=== PATIENT | female | born 1945 | race African-American/Black ===

== ENCOUNTER 2017-09-29 10:01 | Observation (INO) | payer OTHER ==
[2017-09-29 10:46] LABS: Absolute Lymphocytes (CBC) 1.9 K/uL (0.7-4.9); Absolute Monocytes 0.5 K/uL (0.1-1.3); Absolute Neutrophil 3.4 K/uL (1.8-8.0); Eosinophils % 0.5 % (0-4.4); Hematocrit 41.8 % (36.0-45.0); Lymphocytes % 32.3 % (15.3-44.8); MCH 29.1 pg (27.0-35.0); MPV 9.6 fL (7.6-11.3); Monocytes % 8.9 % (3.3-12.3)
[2017-09-29 10:50] LABS: Protime INR 1.05
[2017-09-29 11:02] LABS: Albumin 4.4 g/dL (3.2-5.5); Bilirubin Direct 0.1 mg/dL (0-0.2); Bilirubin Total 0.9 mg/dL (0.3-1.2); Magnesium 2.2 mg/dL (1.8-2.5); Protein, Total 7.7 g/dL (6.0-8.3)
[2017-09-29 11:06] LABS: CKMB Creatine Kinase MB 3.9 ng/ml (0.3-4.0)
--- NOTE | 2017-09-29 11:51 | RAD REPORT ---
EXAM DESCRIPTION: CT - Chest For Pe Angio - 09/29/2017 11:29 am CLINICAL HISTORY: Chest pain. Shortness of breath. COMPARISON: None. TECHNIQUE: CT angiogram of the pulmonary arteries was performed with MIP. All CT scans are performed using dose optimization technique as appropriate and may include automated exposure control or mA/KV adjustment according to patient size. FINDINGS: No evidence of pulmonary thromboembolism. No acute aortic finding demonstrated. Mild cardiomegaly is seen. Mild interstitial pulmonary edema is noted. No significant pericardial or pleural fluid. Moderate thoracic spondylosis. Small cyst is present in the left lobe liver. IMPRESSION: No evidence of pulmonary thromboembolism. Mild interstitial pulmonary edema.
--- NOTE | 2017-09-29 13:06 | RAD REPORT ---
EXAM DESCRIPTION: RAD - Chest Single View - 09/29/2017 11:07 am CLINICAL HISTORY: Chest pain. COMPARISON: 02/23/2014 FINDINGS: Portable technique limits examination quality. Mild interstitial pulmonary edema is seen. The heart is mildly prominent size. No displaced fractures . IMPRESSION: Mild interstitial pulmonary edema.
--- NOTE | 2017-09-29 13:15 | EDPHYS ---
Physician Documentation [facility] Name: Aditi Mitchell Age: 72 yrs Sex: Female : 1945 Arrival Date: 09/29/2017 Time: 10:04 Bed 5 Private MD: Marta Womack F ED Physician Jarret Anaya HPI: 09/29 12:26 This 72 yrs old Black Female presents to ER via Ambulatory with complaints of Chest rn Pain. 12:26 The patient or guardian reports chest pain that is located primarily in the substernal rn area. Onset: 2 week(s) ago. The pain does not radiate. Associated signs and symptoms: Pertinent positives: shortness of breath, Pertinent negatives: abdominal pain, cough, diaphoresis, dizziness, headache, lightheadedness, palpitations. The chest pain is described as sharp. Duration: The patient or guardian reports multiple episodes, that are intermittent. Severity of pain: At its worst the pain was mild in the emergency department the pain is unchanged. The patient has not experienced similar symptoms in the past. Reports chest pain, substernal, non-radiating, not assoc with anything specific, seen by pcp today, sent here for evaluation, last stress test in 2010, told was normal. + mild intermittent sob.. Historical: - Allergies: 10:16 No Known Allergies; aa5 - PMHx: 10:16 Hypertension; aa5 - PSHx: 10:16 Appendectomy; Hysterectomy; Tubal ligation; aa5 - Immunization history:: Pneumococcal vaccine is not up to date. - Social history:: Smoking status: Patient/guardian denies using tobacco. - Ebola Screening: : No symptoms or risks identified at this time. - Family history:: not pertinent. - Hospitalizations: : No recent hospitalization is reported. ROS: 12:26 Constitutional: Negative for fever, chills, and weight loss, Eyes: Negative for injury, rn pain, redness, and discharge, Cardiovascular: Negative for palpitations, and edema, Respiratory: Negative for cough, wheezing, and pleuritic chest pain, Abdomen/GI: Negative for abdominal pain, nausea, vomiting, diarrhea, and constipation, MS/Extremity: Negative for injury and deformity, Skin: Negative for injury, rash, and discoloration, Neuro: Negative for headache, weakness, numbness, tingling, and seizure. Exam: 12:26 Constitutional: This is a well developed, well nourished patient who is awake, alert, rn and in no acute distress. Head/Face: Normocephalic, atraumatic. Eyes: Pupils equal round and reactive to light, extra-ocular motions intact. Lids and lashes normal. Conjunctiva and sclera are non-icteric and not injected. Cornea within normal limits. Periorbital areas with no swelling, redness, or edema. Cardiovascular: Regular rate and rhythm with a normal S1 and S2. No gallops, murmurs, or rubs. Normal PMI, no JVD. No pulse deficits. Respiratory: Lungs have equal breath sounds bilaterally, clear to auscultation and percussion. No rales, rhonchi or wheezes noted. No increased work of breathing, no retractions or nasal flaring. Abdomen/GI: Soft, non-tender, with normal bowel sounds. No distension or tympany. No guarding or rebound. No evidence of tenderness throughout. MS/ Extremity: Pulses equal, no cyanosis. Neurovascular intact. Full, normal range of motion. Equal circumference. Neuro: Awake and alert, GCS 15, oriented to person, place, time, and situation. Cranial nerves II-XII grossly intact. Motor strength 5/5 in all extremities. Sensory grossly intact. Vital Signs: 10:14 BP 172 / 97; Pulse 77; Resp 18 S; Temp 97.9(TE); Pulse Ox 97% on R/A; Weight 97.52 kg aa5 (R); Height 5 ft. 3 in. (160.02 cm) (R); Pain 0/10; 11:02 BP 161 / 91; Pulse 79; Resp 22; Pulse Ox 99% on R/A; tw2 12:00 BP 168 / 104; Pulse 67; Resp 17; Pulse Ox 100% on R/A; tw2 12:59 BP 172 / 95; Pulse 71; Resp 19; Pulse Ox 98% on R/A; tw2 13:38 BP 175 / 97; Pulse 71; Resp 17; Pulse Ox 97% on R/A; tw2 14:49 BP 144 / 87; Pulse 65; Resp 16; Pulse Ox 100% on R/A; tw2 10:14 Body Mass Index 38.09 (97.52 kg, 160.02 cm) aa5 MDM: 10:17 Patient medically screened. rn 13:13 Differential diagnosis: acute myocardial infarction, acute pericarditis, coronary rn artery disease costochondritis, gastroesophageal reflux disease (GERD), pleurisy, pneumothorax, pulmonary embolus. Data reviewed: vital signs, nurses notes, lab test result(s), EKG, radiologic studies, CT scan, plain films, and as a result, I will admit patient. Counseling: I had a detailed discussion with the patient and/or guardian regarding: the historical points, exam findings, and any diagnostic results supporting the discharge/admit diagnosis, lab results, radiology results, the need for further work-up and treatment in the hospital. Response to treatment: the patient's symptoms have mildly improved after treatment, and as a result, I will admit patient. Admission orders: after a detailed discussion of the patient's condition and case, the admit orders are written by me. 09/29 10:28 Order name: Basic Metabolic Panel; Complete Time: 11: 09/29 10:28 Order name: BNP; Complete Time: 11: rn 09/29 10:28 Order name: CBC with Diff; Complete Time: 11: rn 09/29 10:28 Order name: Ckmb; Complete Time: 11: rn 09/29 10:28 Order name: CPK; Complete Time: 11: rn 09/29 10:28 Order name: LFT's; Complete Time: 11: rn 09/29 10:28 Order name: Magnesium; Complete Time: 11: rn 09/29 10:28 Order name: PT-INR; Complete Time: 11: rn 09/29 10:28 Order name: Ptt, Activated; Complete Time: 11: rn 09/29 10:28 Order name: Troponin (emerg Dept Use Only); Complete Time: 11: rn 09/29 10:28 Order name: XRAY Chest (1 view); Complete Time: 13: rn 09/29 11:13 Order name: CT Chest For PE Angio; Complete Time: 13: rn 09/29 13:38 Order name: Urine Dipstick--Ancillary (enter results) bd 09/29 13:57 Order name: Urine Dipstick-Ancillary EDMS 09/29 10:28 Order name: EKG; Complete Time: 10: rn 09/29 10:28 Order name: Cardiac monitoring; Complete Time: 10:42 rn 09/29 10:28 Order name: EKG - Nurse/Tech; Complete Time: 11:10 rn 09/29 10:28 Order name: IV Saline Lock; Complete Time: 10:43 rn 09/29 10:28 Order name: Labs collected and sent; Complete Time: 10:43 rn 09/29 10:28 Order name: O2 Per Protocol; Complete Time: : rn 09/29 10:28 Order name: O2 Sat Monitoring; Complete Time: 10:42 rn Administered Medications: 13:30 Drug: Aspirin Chewable Tablet 324 mg Route: PO; tw2 13:37 Follow up: Response: No adverse reaction tw2 Disposition: 09/29/17 13:15 Hospitalization ordered by Marta Womack for Observation. Preliminary diagnosis is Chest pain, unspecified. - Bed requested for Telemetry/MedSurg (observation). - Status is Observation. sg - Condition is Stable. - Problem is an ongoing problem. - Symptoms are unchanged. UTI on Admission? No Signatures: Dispatcher [employer] EDMS Gabrielle House Steven, RN RN sg Jarret Anaya MD MD rn Calderon, Audri RN RN aa5 Sharon Collazo RN RN tw2 Corrections: (The following items were deleted from the chart) 15:15 13:15 Hospitalization Ordered by Marta Womack MD for Observation. Preliminary bd diagnosis is Chest pain, unspecified. Bed requested for Telemetry/MedSurg (observation). Status is Observation. Condition is Stable. Problem is an ongoing problem. Symptoms are unchanged. UTI on Admission? No. rn 15:36 15:15 09/29/2017 13:15 Hospitalization Ordered by Marta Womack MD for Observation. sg Preliminary diagnosis is Chest pain, unspecified. Bed requested for Telemetry/MedSurg (observation). Status is Observation. Condition is Stable. Problem is an ongoing problem. Symptoms are unchanged. UTI on Admission? No. bd
--- NOTE | 2017-09-29 13:15 | ER ---
Nurse's Notes [facility] Name: Aditi Mitchell Age: 72 yrs Sex: Female : 1945 Arrival Date: 09/29/2017 Time: 10:04 Bed 5 Private MD: Marta Womack F Diagnosis: Chest pain, unspecified Presentation: 09/29 10:13 Presenting complaint: Patient states: intermittent mid-sternal chest pain that began aa5 2-3 weeks ago. Pt states "when I get the pain it takes my breath away". Transition of care: patient was not received from another setting of care. Onset of symptoms was August 2017. Risk Assessment: Do you want to hurt yourself or someone else? Patient reports no desire to harm self or others. Initial Sepsis Screen: Does the patient meet any 2 criteria? No. Patient's initial sepsis screen is negative. Does the patient have a suspected source of infection? No. Patient's initial sepsis screen is negative. Care prior to arrival: None. 10:13 Method Of Arrival: Ambulatory aa5 10:13 Acuity: SURYA 3 aa5 Historical: - Allergies: 10:16 No Known Allergies; aa5 - PMHx: 10:16 Hypertension; aa5 - PSHx: 10:16 Appendectomy; Hysterectomy; Tubal ligation; aa5 - Immunization history:: Pneumococcal vaccine is not up to date. - Social history:: Smoking status: Patient/guardian denies using tobacco. - Ebola Screening: : No symptoms or risks identified at this time. - Family history:: not pertinent. - Hospitalizations: : No recent hospitalization is reported. Screenin:05 Abuse screen: Denies threats or abuse. Nutritional screening: No deficits noted. tw2 Tuberculosis screening: No symptoms or risk factors identified. Fall Risk None identified. Assessment: 10:44 General: Appears in no apparent distress. obese, well groomed, Behavior is calm, tw2 cooperative, appropriate for age. Pain: Complains of pain in mid-sternal area Pain does not radiate. Pain began "a couple of weeks ago" "no pain now". Neuro: Level of Consciousness is awake, alert, obeys commands, Oriented to person, place, time. Cardiovascular: Reports chest pain, comes and goes in the middle of my chest, my DrRimma sent me over here today to get it checked out. Respiratory: Airway is patent Respiratory effort is even, unlabored, Respiratory pattern is regular, symmetrical, Breath sounds are clear bilaterally. GI: No signs and/or symptoms were reported involving the gastrointestinal system. Abdomen is round non-distended, obese, Bowel sounds present X 4 quads. : No signs and/or symptoms were reported regarding the genitourinary system. EENT: No signs and/or symptoms were reported regarding the EENT system. Derm: No signs and/or symptoms reported regarding the dermatologic system. Skin is intact, is healthy with good turgor, Skin is dry, Skin temperature is warm. Musculoskeletal: Range of motion: intact in all extremities. 11:45 Reassessment: Patient appears in no apparent distress at this time. No changes from tw2 previously documented assessment. Patient and/or family updated on plan of care and expected duration. Pain level reassessed. Patient is alert, oriented x 3, equal unlabored respirations, skin warm/dry/pink. 12:15 Reassessment: Patient appears in no apparent distress at this time. Patient and/or iw family updated on plan of care and expected duration. Pain level reassessed. Patient is alert, oriented x 3, equal unlabored respirations, skin warm/dry/pink. pt ambulated to bathroom with steady gait, family at bedside. 13:38 Reassessment: Patient appears in no apparent distress at this time. No changes from tw2 previously documented assessment. Patient and/or family updated on plan of care and expected duration. Pain level reassessed. Patient is alert, oriented x 3, equal unlabored respirations, skin warm/dry/pink. 14:50 Reassessment: Patient appears in no apparent distress at this time. No changes from tw2 previously documented assessment. Patient and/or family updated on plan of care and expected duration. Pain level reassessed. Patient is alert, oriented x 3, equal unlabored respirations, skin warm/dry/pink. 15:21 Reassessment: Patient appears in no apparent distress at this time. No changes from tw2 previously documented assessment. Patient and/or family updated on plan of care and expected duration. Pain level reassessed. Patient is alert, oriented x 3, equal unlabored respirations, skin warm/dry/pink. Vital Signs: 10:14 BP 172 / 97; Pulse 77; Resp 18 S; Temp 97.9(TE); Pulse Ox 97% on R/A; Weight 97.52 kg aa5 (R); Height 5 ft. 3 in. (160.02 cm) (R); Pain 0/10; 11:02 BP 161 / 91; Pulse 79; Resp 22; Pulse Ox 99% on R/A; tw2 12:00 BP 168 / 104; Pulse 67; Resp 17; Pulse Ox 100% on R/A; tw2 12:59 BP 172 / 95; Pulse 71; Resp 19; Pulse Ox 98% on R/A; tw2 13:38 BP 175 / 97; Pulse 71; Resp 17; Pulse Ox 97% on R/A; tw2 14:49 BP 144 / 87; Pulse 65; Resp 16; Pulse Ox 100% on R/A; tw2 10:14 Body Mass Index 38.09 (97.52 kg, 160.02 cm) aa5 ED Course: 10:04 Patient arrived in ED. mr 10:04 Marta Womack MD is Private Physician. mr 10:14 Triage completed. aa5 10:14 Arm band placed on. aa5 10:17 Jarret Anaya MD is Attending Physician. rn 10:30 Placed in gown. Bed in low position. Side rails up X 1. monitoring specialist on. Pulse ox tw2 on. NIBP on. Warm blanket given. 10:35 No provider procedures requiring assistance completed. Inserted saline lock: 22 gauge tw2 in right antecubital area, using aseptic technique. Blood collected. Patient maintains SpO2 saturation greater than 95% on room air. 10:42 Sharon Collazo, PABLO is Primary Nurse. tw2 11:04 X-ray completed. Portable x-ray completed in exam room. Patient tolerated procedure kp1 well. 11:06 XRAY Chest (1 view) In Process Unspecified. EDMS 11:[address] via stretcher. vr 11:26 CT completed. Patient tolerated procedure well. Patient moved back from CT. vr 11:29 CT Chest For PE Angio In Process Unspecified. EDMS 13:15 Marta Womack MD is Hospitalizing Provider. rn 15:20 Patient admitted, IV remains in place. tw2 Administered Medications: 13:30 Drug: Aspirin Chewable Tablet 324 mg Route: PO; tw2 13:37 Follow up: Response: No adverse reaction tw2 Outcome: 13:15 Decision to Hospitalize by Provider. rn 15:20 Admitted to Med/surg accompanied by nurse, via wheelchair, room 405, Report called to tw2 PABLO Novak 15:20 Condition: stable 15:20 Instructed on the need for admit. 15:36 Patient left the ED. sg Signatures: Dispatcher [employer] EDMS Karel Leo RN RN Evelyn Dennis, Ailin, RN PABLO Jarret Anaya MD MD rn Calderon, Jolie, RN RN aa5 Dodie Almaraz Tara, RN RN tw2 Elidia Good [facility] Corrections: (The following items were deleted from the chart) 13:02 12:00 Pulse 71bpm; Resp 19bpm; Pulse Ox 98% RA; tw2 tw2 13:38 12:00 BP 172 / 95; Pulse 71bpm; Resp 19bpm; Pulse Ox 98% RA; tw2 tw2 15:21 15:20 Admitted to Med/surg accompanied by nurse, via wheelchair, room 405, tw2 tw2
[2017-09-29] MEDS ORDERED: ASPIRIN 81 MG CHEWABLE TABLET ONE (13:24)
--- NOTE | 2017-09-29 13:41 | EKG ---
Test Date: 2017-09-29 Test Time: 10:55:12 Events Manager: SWG MEASUREMENT RESULTS: Intervals: Rate: 68 SC: 228 QRSD: 70 QT: 360 QTc: 382 Frost: P: 51 SC: 228 QRS: -15 T: 10 INTERPRETIVE STATEMENTS: Sinus rhythm with 1st degree AV block ST elevation, consider early repolarization, pericarditis, or injury Abnormal ECG Compared to ECG 06/20/2014 14:29:28 First degree AV block now present ST (T wave) deviation now present Electronically Signed On 09-29-17 13:40:33 CDT by Poncho Al
[2017-09-29] MEDS ORDERED: NA CHLORIDE 0.9% 1,000 ML ONE (13:51)
[2017-09-29 13:57] LABS: Urine Blood TRACE (NEG); Urine Glucose NEGATIVE (NEG); Urine Protein NEGATIVE (NEG); Urine pH 7.5 (5.0-7.0)
[2017-09-29] MEDS ORDERED: ONDANSETRON 4 MG/2 ML VIAL IV PRN (15:46)
[2017-09-29] MEDS ORDERED: ACETAMINOPHEN 500 MG TAB PO PRN (15:46)
[2017-09-29 16:26] VITALS: BMI 38.0
[2017-09-29] MEDS ORDERED: PNEUMOCOCCAL VACCINE 0.5 ML IMVAC ONE (17:00)
[2017-09-29] MEDS ORDERED: HOME MED 1 EA UNK (Omeprazole [Omeprazole] 20 MG) PO PRN (17:26)
[2017-09-29] MEDS ORDERED: PANTOPRAZOLE 40MG TABLET PO PRN (17:32)
[2017-09-29] MEDS: AMLODIPINE 5 MG TAB PO SCH (18:17)
[2017-09-29] MEDS: ENOXAPARIN 30 MG/0.3 ML SQ SCH (18:18)
--- NOTE | 2017-09-30 02:08 | HP ---
Date of Admission: 09/29/2017 History Of Present Illness: A 72-year-old female, who presented to the emergency room with a complai nt of chest pain. This had been happening for about 2 weeks. She points to this substernal area. N o radiation. Described as pressure-like, sometimes sharp. Relation to activity is not very evident, sometimes, she said, with activity but she would feel it while she is sitting sometimes. She also h as shortness of breath, mild, off and on, however she felt no palpitation. No dizziness. No nausea, no vomiting, cough or fever or chills. Voiced no other complaints. Review of Systems: Cardiovascular: As mentioned, no palpitation no other complaints. Respiratory: As above. Gastrointestinal: No complaints. Genitourinary: No complaint. Neurological: No complaint. Skeletomuscular: No complaint. Past Medical History: 1.Hypertension. 2.Gastroesophageal reflux disease. Past Surgical History: The patient has had appendectomy, hysterectomy, and tubal ligation in the [facility] t. Medications: Include amlodipine 5 mg p.o. daily and omeprazole 20 mg p.o. daily p.r.n. Allergies: NO KNOWN DRUG ALLERGIES. Physical Examination: Vital Signs: Blood pressure 144/85, pulse 65, temperature 96.8. Heart: Regular rate and rhythm. Chest: Clear to auscultation. Abdomen: Soft, nontender. No hepatosplenomegaly. Bowel sounds normoactive. Extremities: No edema. No cyanosis. Peripheral pulses are felt. Neurological examination: Alert, oriented, nonfocal. Grossly intact. Diagnostic Data: 1.Chest x-ray, mild interstitial edema. 2.EKG showed ST elevation as function of early repolarization, pericarditis, or injury. The patient also had third-degree AV block. 3.Chest CT, mild interstitial pulmonary edema. No evidence of PE. Laboratory Data: CBC nonrevealing. PT/INR within normal. Chemistry, nonfasting blood sugar 128. T he rest is nonrevealing. Troponin less than 0.03. Assessment And Plan: Chest pain with mild shortness of breath for the past 2 weeks. Last episode th morning of her presentation to the emergency room. The patient is being admitted. We will proceed cardiac enzymes. Keep her on telemetry. Repeat EKG and we will ask Cardiology consult. We will al so put the patient on Lovenox prophylaxis. We will continue her on home medicines for her chronic me dical illness, pending Cardiology recommendation. Look orders for details. MIMI/MESHA Voice ID: [id number]
[2017-09-30 06:33] LABS: Absolute Lymphocytes (CBC) 2.9 K/uL (0.7-4.9); Absolute Monocytes 0.7 K/uL (0.1-1.3); Absolute Neutrophil 3.8 K/uL (1.8-8.0); Basophils % 0.7 % (0-1.3); Eosinophils % 1.2 % (0-4.4); Hematocrit 41.1 % (36.0-45.0); Lymphocytes % 37.6 % (15.3-44.8); MCH 29.7 pg (27.0-35.0); MCV 88.2 fL (80-100); MPV 9.9 fL (7.6-11.3); Monocytes % 9.8 % (3.3-12.3); RBC Red Blood Cell Count 4.66 M/uL (3.86-4.86)
[2017-09-30 06:41] LABS: Potassium 4.3 mEq/L (3.6-5.0)
[2017-09-30 08:26] VITALS: O2SAT 100
[2017-09-30] MEDS ORDERED: REGADENOSON 0.4 MG/5 ML SYR IV ONE (08:37)
[2017-09-30] MEDS ORDERED: ASPIRIN EC 81 MG TAB PO SCH (09:00)
--- NOTE | 2017-09-30 10:39 | ECHO ---
HEIGHT: 5 ft 3 in WEIGHT: 215 lb 0 oz DATE OF STUDY: 09/30/[address]: Jarret Anaya JR, MD 2-DIMENSIONAL: YES M.MODE: YES DOPPLER: YES COLOR FLOW: YES TDS: NO PORTABLE: NO DEFINITY: NO BUBBLE STUDY: NO DIAGNOSIS: CHEST PAIN CARDIAC HISTORY: CATHERIZATION: NO SURGERY: NO PROSTHETIC VALVE: NO PACEMAKER: NO MEASUREMENTS (cm) DIASTOLIC (NORMALS) SYSTOLIC (NORMALS) IVSd 1.2 (0.6-1.2) LA Diam 3.7 (1.9-4.0) LVEF 76% LVIDd 4.3 (3.5-5.7) LVIDs 2.4 (2.0-3.5) %FS 44% LVPWd 1.3 (0.6-1.2) Ao Diam 2.9 (2.0-3.7) 2 DIMENSIONAL ASSESSMENT: RIGHT ATRIUM: NORMAL LEFT ATRIUM: NORMAL RIGHT VENTRICLE: NORMAL LEFT VENTRICLE: LEFT VENTRICULAR HYPERTROPHY TRICUSPID VALVE: NORMAL MITRAL VALVE: NORMAL PULMONIC VALVE: NORMAL AORTIC VALVE: NORMAL PERICARDIAL EFFUSION: NONE AORTIC ROOT: NORMAL LEFT VENTRICULAR WALL MOTION: NORMAL. DOPPLER/COLOR FLOW: IMPAIRED LEFT VENTRICULAR RELAXATION. MILD TRICUSPID REGURGITATION. NORMAL RIGHT VENTRICULAR SYSTOLIC PRESSURE. COMMENTS: NORMAL LEFT VENTRICULAR EJECTION FRACTION. LEFT VENTRICULAR HYPERTROPHY. IMPAIRED LEFT VENTRICULAR RELAXATION. MILD TRICUSPID REGURGITATION. TECHNOLOGIST: BRADFORD MÉNDEZ
[2017-09-30] MEDS: AMLODIPINE 5 MG TAB PO SCH (10:51)
[2017-09-30] MEDS: ENOXAPARIN 30 MG/0.3 ML SQ SCH (10:52)
--- NOTE | 2017-09-30 11:20 | PN ---
Subjective: The patient is feeling well. No new complaint. Objective: Vital signs: Blood pressure 135/78, pulse 66, and temperature 97.4. Heart: Regular rate and rhythm. Chest: Clear to auscultation. Abdomen: Soft, benign. Neurologic: Alert, oriented. Grossly intact. Extremities: No edema, no cyanosis. Laboratory Data: CBC noted. Chemistry noted. Blood sugar fasting 125. Cardiac enzymes less than 0 .03. Assessment And Plan: Chest pain. As described before, the patient is clinically stable, pending Car diology recommendation. Continue current treatment for hypertension also and the rest of her home me dications. Look orders for details. MFS/MODL Voice ID: [id number] Report ID: [id number]
--- NOTE | 2017-09-30 12:25 | CON ---
Chief Complaint: Chest pain. History Of Present Illness: Ms. Mitchell for several weeks has been feeling chest pain. It will last for about 10 seconds. It is sudden onset, sudden resolution. It does not seem to be related to meals, body position, exertion, time of day, or anything that she can think of. The patient has never had coronary heart disease. No history of myocardial infarction, stroke, heart surgery, vascular surgery, blood clots. She has hypertension and takes amlodipine. She takes eyedrops for glaucoma and uses omeprazole on an as- needed basis. She takes the amlodipine intermittently, not daily, but she knows sometimes her blood pressure gets too low when she takes it daily. Apparently, this is not a plan that her doctor wanted her to follow. She uses no tobacco, no alcohol, no illegal drugs. She has had a history of hysterectomy , appendectomy, bilateral knee joint replacement surgeries. Physical Examination: Vital Signs: 5 feet 3 inches, 215 pounds, body mass index 38. HEENT: Unremarkable. Carotids: No bruit. Lungs: Clear. Cardiac: Normal. Abdomen: Soft. Extremities: Within normal limits. Laboratory Data: All of her troponins are normal. B-natriuretic peptide is normal. Blood sugar 128. Her electrocardiogram shows first-degree AV block, nonspecific repolarization abnormality. A CT angio of the chest is negative for pulmonary embolus. Chest x-ray suggests mild interstitial increased pulmonary markings, possibly edema or fibrosis. Impression: The patient's chest pain is very atypical for heart, to be more consistent with pulmonary embolus, but even that seems unlikely, especially in light of the normal CT angio of the chest. I recommend we do a stress test because she has had bilateral knee joint replacements, I asked her to walk on a treadmill. We will do a chemical stress test and echocardiogram and we will see what we learn after those, see if there is any need to proceed with further testing such as a heart catheterization. MILTON Voice ID: [id number] Report ID: [id number] AMINA
--- NOTE | 2017-09-30 13:35 | RAD REPORT ---
EXAM DESCRIPTION: NM - Rest Stress Cardiac Imaging - 09/30/2017 1:22 pm CLINICAL HISTORY: Chest pain COMPARISON: None. TECHNIQUE: The patient was administered 10.6 mCi of Tc 99m Sestamibi prior to resting SPECT imaging of the heart. The patient was then administered 31.1 mCi of Tc 99m Sestamibi following exercise or ph armacologic stress. Multiplanar SPECT images were reviewed. FINDINGS: The end diastolic volume is 81 ml, the end systolic volume is 28 ml, and the ejection frac tion is 66 %. No stress-induced ischemic changes are identifiable. Relative decrease in activity across the anterio r wall is favored to be breast attenuation artifact rather than any measurable degree of scarring. IMPRESSION: No stress-induced ischemia. Mild decrease in activity across the anterior wall is believed to be breast attenuation rather than s carring. Ventricular volumes and ejection fraction are normal range.
--- NOTE | 2017-09-30 13:42 | TREADPHA ---
DX: CHEST PAIN Date of Study: 09/30/2017 Ht: 5 3 Wt: 215 lb 0 oz Consulting Physician: ELIZABETH MEDICATIONS: TYLENOL, NORVASC, ASPIRIN, LOVENOX, ZOFRAN, PROTONIX HISTORY: 72 YEAR OLD FEMALE WITH COMPLAINTS OF CHEST PAIN. HISTORY OF HYPERTENSION. PHYSICIAL EXAMINATION: RESTING B.P.: 178/80 RESTING H.R.: 82 RESTING EKG: NORMAL PROTOCOL: LEXISCAN EXERCISE TIME: 3:30 B.P. AT PEAK STRESS: 152/64 IMPRESSION: LEXISCAN INJECTED, CARDIOLITE INJECTED PER PROTOCOL. SEE NUCLEAR MEDICINE REPORT. NO SUPRAVENTRICULAR TACHYCARDIA. NO VENTRICULAR TACHYCARDIA. OCCASIONAL POST PREMATURE VENTRICULAR COMPLEXES. CHEST PAIN THREE OUT OF TEN ON PAIN SCALE AFTER ADMINISTRATION OF LEXISCAN. NON-DIAGNOSTIC ELECTROCARDIOGRAM WITH LEXISCAN STRESS.
[2017-09-30 16:50] VITALS: BP 133/75; TEMP 97.3
== END 2017-09-30 17:52 | disposition home or self-care (01) ==
LOC: ER 10:01 → ERHOLD 13:26 → 4TH 15:25
PROVIDERS: ADMIT Internal Medicine; ATTEND Internal Medicine
DX: R07.9 Chest pain, unspecified (principal); I10 Essential (primary) hypertension; K21.9 Gastro-esophageal reflux disease without esophagitis
CPT/HCPCS: 36415; 71045; 71275; 78452; 80048 ×2; 80076; 81003; 82550; 82553; 83735; 83880; 84484 ×3; 85025 ×2; 85610; 85730; 93005; 93017; 93306; 99285; A9500; G0378 ×2; J1650 ×2; J2785; J7030; Q9967

== ENCOUNTER 2020-07-02 07:35 | Day surgery (SDC) | payer OTHER ==
[2020-06-29 11:57] LABS: Absolute Lymphocytes (CBC) 2.1 K/uL (0.7-4.9); Hematocrit 43.7 % (36.0-45.0); Lymphocytes % 31.4 % (15.3-44.8); MPV 8.8 fL (7.6-11.3); RBC Red Blood Cell Count 4.95 M/uL (3.86-4.86)
[2020-06-29 12:06] LABS: Protime INR 1.04
--- NOTE | 2020-06-29 12:36 | RAD REPORT ---
EXAM DESCRIPTION: Abilio Darnell (2 Views)06/29/2020 12:10 pm CLINICAL HISTORY: Preop for cardiac catheterization COMPARISON: 2018 FINDINGS: The lungs appear clear of acute infiltrate. The heart is borderline enlarged IMPRESSION: No acute abnormalities displayed
[2020-07-02] MEDS ORDERED: NA CHLORIDE 0.9% 500 ML ONE (07:56)
[2020-07-02] MEDS ORDERED: LIDOCAINE 1% 20 ML MDV ONE (08:22)
[2020-07-02] MEDS ORDERED: HEPA 1000U/500MLS 1,000 UNIT/500 ML BAG IV ONE (08:22)
[2020-07-02] MEDS ORDERED: MIDAZOLAM HCL 2 MG/2 ML INJ ONE ×2 (08:55→09:07)
[2020-07-02] MEDS ORDERED: FENTANYL CITR 100 MCG/2 ML ONE (08:55)
[2020-07-02] MEDS ORDERED: ATROPINE SULF 1 MG/10 ML SYR IV ONE (08:56)
[2020-07-02] MEDS ORDERED: NA CHLORIDE 0.9% 0 ML ONE (08:56)
--- NOTE | 2020-07-02 11:28 | OP ---
Date of Procedure: 07/02/2020 Surgeon: Poncho Al MD Diesel Mechanic Apprentice: Mr. Pérez. The patient was admitted as an outpatient to the [facility] today 07/02/2020. Procedure was left heart catheterization and selective coronary arteriogram. Indication: Ms. Mitchell is 75, was thought to have unstable angina, has cardiac risk factors for hear t disease. Procedure In Detail: Brought to the [facility] today as an outpatient, prepped and draped in the routi ne sterile fashion. Given Versed and fentanyl for sedation. A 6-Mohawk sheath introduced in the rig ht common femoral artery successfully using the Seldinger technique. JL4 and JR4 catheter were used to do the diagnostic catheterization. She had a normal left main, normal RCA, normal circumflex, nor mal LAD. She was right dominant. There were no complications. Blood loss was 5 cc. Total consciou s sedation was 45 minutes. Postoperative Diagnosis: Unstable angina with normal coronary arteries. Plan: To continue medical therapy. Angiography in the right common femoral artery area was normal. Angio-Seal was used to close the case. Patient will stay in the hospital for 2 hours of bedrest and then go home. I will have her see me in the office in 2 weeks. CARLITA/MESHA Voice ID: [id number] Report ID: [id number]
[2020-07-02 19:20] VITALS: BP 120/66; TEMP 96.8; O2SAT 96
== END 2020-07-02 11:12 | disposition home or self-care (01) ==
LOC: CCL 07:35
DX: I20.0 Unstable angina (principal); I11.0 Hypertensive heart disease with heart failure; I50.32 Chronic diastolic (congestive) heart failure; E11.9 Type 2 diabetes mellitus without complications; K21.9 Gastro-esophageal reflux disease without esophagitis; E66.9 Obesity, unspecified; Z68.39 Body mass index [BMI] 39.0-39.9, adult; Z20.822 Contact with and (suspected) exposure to COVID-19
CPT/HCPCS: 93005; 85025; 80048; 36415; 85610; 82947 ×2; 85730; 71046; 93454; U0003; C1893; J2250 ×2; J3010; J7040; J1644; J0583